=== PATIENT | female | born 1940 | race Caucasian/White ===

== ENCOUNTER 2023-11-05 08:21 | Outpatient (AMB) | payer OTHER, MEDICAID, SELFPAY ==
--- NOTE | 2023-11-05 08:23 | MHC.OFFVIS ---
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 Neuralgia-Conf Intake Note: Pt presents to the office for new pt evaluation for chronic ear and face pain. Stroboroma Operator Required: Yes Stroboroma Operator Name: Marlen JONES Tejada Allergies cortisone Allergy (Mild, Verified 11/05/23 08:25) Unknown Medication List - Last Reconciled 11/05/23 by Dee Rosas MD amlodipine 10 mg PO DAILY artificial tears(hypromellose) 0.3% (Systane Gel) 1 drp ophthalmic (eye) QID PRN atenolol 50 mg PO DAILY azelastine 1 spray intranasal BID calcium carbonate (Calcium 600) 600 mg PO DAILY cilostazol 50 mg PO BID clopidogrel 75 mg PO DAILY evolocumab (Repatha SureClick) 140 mg subcut Q2W ferrous sulfate 325 mg PO DAILY glipizide 2.5 mg PO DAILY ketotifen fumarate 0.025%(0.035%) ([place]away) 1 drp ophthalmic (eye) BID loperamide-simethicone 2-125 mg (Anti-Diarrheal (loperamide) - Anti-Gas) 1 tab PO Q3H PRN loratadine (Allergy Relief (loratadine)) 10 mg PO DAILY lorazepam 0.5 mg PO DAILY PRN losartan 25 mg PO DAILY melatonin 3 mg PO BEDTIME PRN ondansetron 4 mg PO Q8H pantoprazole 20 mg PO DAILY sucralfate 5 mL PO QID tramadol 50 mg PO BEDTIME HPI Comments Details: 83y/o female comes here for evaluation of left facial and ear pain. she is accompanied by her daughter who helps with history.the symptoms started about 1 year ago - left facial pain eye pain and eye tearing. she was seen by opthalmologist who gave her eye drops for dry eyes. she describes the discomfort as pulsating sensation in temporal region with eye tearing . No change in vision.she also reports visual aura- sees bright spots , ear pain lasting about 10 min . she has 2 episodes a day on most days. No double vision. it is triggered when she sneezes or coughs she also has tinnitus in her left ear. No further history was obtainable. she has h/o migraines with aura- she has 0-1 episode a month she used to have more frequent episodes 3 years ago whichs he attribute sto passive smoking she describes the headaches as frontal pressure throbbing with photophobia, phonophobia and visual aura - usually she sleeps and tries OTC meds. It can last 1-2 days she also wakes up with vertigo PFS Medical History (Updated 11/05/23 @ 09:38 by Dee Rosas MD) Migraine Paroxysmal hemicrania Cervical spondylosis Insomnia Memory change Hyperlipidemia Breast cancer Depression Generalized headaches Osteoporosis Arthritis Diabetes HTN (hypertension) Surgical History (Updated 11/05/23 @ 08:49 by Marlen Waters CMA) H/O lumpectomy Social History (Updated 11/05/23 @ 08:50 by Marlen Waters CMA) Household Members: Family Alcohol intake: never Patient Tobacco Use Status: Current everyday Tobacco user Cigarette Packs Per Day: 1 Years Smoked: SInce age 13 Physical Exam Vital Signs: Last Vital Signs Pulse 62 11/05/23 08:43 Resp 16 11/05/23 08:43 BP 164/84 H 11/05/23 08:43 Pulse Ox 97 11/05/23 08:43 Oxygen Delivery Method Room Air 11/05/23 08:43 BMI result Body Mass Index 21.7 Const General: cooperative, healthy appearing, comfortable and no acute distress Nutritional Appearance: average body habitus Orientation/consciousness: patient oriented x3 Eyes Pupils: Equal, round and reactive pupils present Neuro General: patient oriented x3, gait normal, tone normal and moves all extremities Cranial nerves: Yes Facial sensation intact/muscles of mastication intact, Yes Equal, round and reactive pupils present, Yes Bilaterally intact EOM present, Yes Nystagmus not present, Yes Normal facial strength present, Yes Midline tongue present and Yes Symmetric palate elevation present Cognition (Neuro): normal cognition Gait exam (Neuro): Normal gait present and Antalgic gait present Motor exam (neuro): 5/5 motor strength present throughout Deep tendon reflexes (DTR's): Right triceps reflex intensity grade: 1+, Left triceps reflex intensity grade: 1+, Rt Biceps (C5, C6): 1+, Left biceps reflex intensity grade: 1+, Right brachioradialis reflex intensity grade: 1+, Left brachioradialis reflex intensity grade: 1+, Right patellar reflex intensity grade: 1+ and Left patellar reflex intensity grade: 1+ Coordination: [id number] test normal Assessment & Plan Assessment & Plan (1) Paroxysmal hemicrania: Code(s): G44.039 - Episodic paroxysmal hemicrania, not intractable Category: Medical (2) Cervical spondylosis: Code(s): M47.812 - Spondylosis without myelopathy or radiculopathy, cervical region Category: Medical (3) Migraine: Code(s): G43.909 - Migraine, unspecified, not intractable, without status migrainosus Category: Medical Plan I will evaluate her with MRI brain ESR ? temporal arteritis Start gabapentin 100mg 1-3 tabs qhs Magnesium 250mg qhs Orders: Orders Comprehensive Met. Panel Today G44.039 - Episodic paroxysmal hemicrania, not intractable Erythrocyte Sedimentation Rate Today G44.039 - Episodic paroxysmal hemicrania, not intractable Complete Blood Count Auto Diff Today G44.039 - Episodic paroxysmal hemicrania, not intractable MR head/brain wo con Today G44.039 - Episodic paroxysmal hemicrania, not intractable Medications: New gabapentin 1-3 caps a bedtime orally bedtime; 90 caps 3RF magnesium oxide 250 mg PO DAILY 30 tabs 6RF Coding Level of Care Code New Pt Level 4 (12943) Diagnoses Paroxysmal hemicrania G44.039 Cervical spondylosis M47.812 Migraine G43.909
[2023-11-05 08:43] VITALS: BP 164/84; PULSE 62; RESP 16; O2SAT 97; BMI 21.7
== END 2023-11-05 09:26 | disposition home or self-care (01) ==
PROVIDERS: PCP Student in an Organized Health Care Education/Training Program; Visit Provider Psychiatry & Neurology Neurology
DX: G44.039 Episodic paroxysmal hemicrania, not intractable (principal); M47.812 Spondylosis without myelopathy or radiculopathy, cervical region; G43.909 Migraine, unspecified, not intractable, without status migrainosus
CPT/HCPCS: 99204

== ENCOUNTER 2023-11-05 09:34 | Outpatient (REF) | payer OTHER, MEDICAID, SELFPAY ==
[2023-11-05 17:38] LABS: MANUAL DIFF FLAG NO
[2023-11-05 17:42] LABS: Basophils Percent Auto 0.6 % (0-2); Eosinophils Absolute Auto 0.1 X10*3/uL (0.0-0.4); Eosinophils Percent Auto 1.3 % (0-4); Hematocrit 36.1 % (37.0-47.0); Hemoglobin 11.5 g/dl (12.0-16.0); Imm Gran Abs Auto 0.01 X10*3/uL (0.00-0.03); Imm Gran Pct Auto 0.1 % (0.0-0.4); Lymphocytes Absolute Auto 1.2 X10*3/uL (1.2-4.9); Lymphocytes Percent Auto 16.7 % (20-40); Mean Corpuscular HGB Conc 31.9 g/dl (31.0-35.0); Mean Corpuscular Hemoglobin 26.8 pg (27.0-33.0); Mean Corpuscular Volume 84.1 fL (80.0-98.0); Mean Platelet Volume 10.1 fL (9.4-12.3); Monocytes Absolute Auto 0.7 X10*3/uL (0.1-1.2); Monocytes Percent Auto 9.3 % (2-11); Neutrophils Absolute Auto 5.2 x10*3/uL (2.0-8.3); Platelet Count 240 X10*3/uL (160-400); Red Blood Count 4.29 X10*6/uL (4.20-5.50); Red Cell Distribution Width 16.6 % (11.0-16.0); White Blood Count 7.2 X10*3/uL (4.8-10.8)
[2023-11-05 18:29] LABS: Alanine Aminotransferase 12 U/L (0-31); Albumin Level 3.7 g/dL (3.5-5.0); Alkaline Phosphatase 77 U/L (39-117); Anion Gap 11 (12-20); Aspartate Amino Transferase 18 U/L (5-31); Bilirubin Total 0.2 mg/dL (0.0-1.0); Blood Urea Nitrogen 28 mg/dL (9-16); Carbon Dioxide 29 mmol/L (22-29); Chloride 105 mmol/L (96-108); Estimated Glomerular Filt Rate 32; Glucose Random 89 mg/dL (60-115); Potassium 3.3 mmol/L (3.3-5.1); Sodium 142 mmol/L (135-145); Total Protein 7.2 g/dL (6.5-8.0)
[2023-11-05 18:42] LABS: Erythrocyte Sedimentation Rate 39 MM/HR (0-20)
== END 2023-11-05 09:35 | disposition home or self-care (01) ==
LOC: HO.HKASLDS 09:34
PROVIDERS: Visit Provider Psychiatry & Neurology Neurology
DX: G44.039 Episodic paroxysmal hemicrania, not intractable (principal); M47.812 Spondylosis without myelopathy or radiculopathy, cervical region; G43.909 Migraine, unspecified, not intractable, without status migrainosus
CPT/HCPCS: 36415; 80053; 85025; 85652; 99202

== ENCOUNTER 2023-12-31 12:59 | Outpatient (REF) | payer OTHER, SELFPAY ==
--- NOTE | ~2023-12-31 | MR_ITS ---
EXAMINATION: MR BRAIN WITHOUT CONTRAST CLINICAL INFORMATION: Episodic paroxysmal hemicrania. COMPARISON: Images from CT scan of the neck 09/05/2022. TECHNIQUE: MRI of the brain was obtained using routine sequences without contrast. FINDINGS: No diffusion abnormalities are identified to suggest an acute or subacute infarct. No mass effect or midline shift is seen. The ventricles and sulci are commensurately prominent consistent with diffuse volume loss. There are areas of increased T2 and FLAIR signal along the anterior and posterior aspects of the lateral ventricles, and there are scattered areas of hyperintense T2 and FLAIR signal in the periventricular and subcortical white matter. These findings are most consistent with chronic microvascular ischemic changes although mild transependymal flow cannot be excluded. No extra-axial fluid collections are seen. The brainstem appears normal. No pathologic magnetic susceptibility artifact is identified on the gradient refocused acquisition. The cerebellar tonsils have normal contour and position, and the craniocervical junction appears normal. 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 The major intracranial flow-voids at the level of the [place] are preserved. The dural venous sinus flow-voids are maintained. There is trace fluid in the left mastoid tip. There have been bilateral lens extractions. The paranasal sinuses are well aerated. MR/MR head/brain wo con IMPRESSION: 1. There are no acute bleeds or territorial infarcts. No masses are demonstrated. 2. There are chronic microvascular ischemic changes and there is diffuse volume loss. Mild transependymal flow cannot be excluded. Correlate clinically for signs of hydrocephalus. Electronically signed by: Turner Fleming MD 01/24/2024 05:27 PM EDT
== END 2023-12-31 13:00 | disposition home or self-care (01) ==
LOC: HO.MRI 12:59
PROVIDERS: PCP Student in an Organized Health Care Education/Training Program; Visit Provider Psychiatry & Neurology Neurology
DX: G44.039 Episodic paroxysmal hemicrania, not intractable (principal)
CPT/HCPCS: 70551

== ENCOUNTER 2024-03-24 09:02 | Outpatient (AMB) | payer OTHER, MEDICAID, SELFPAY ==
--- NOTE | 2024-03-24 09:04 | MHC.OFFVIS ---
Vital Signs 03/24/24 09:05 Height 5 ft 3 in Weight 122 lb 2 oz BMI 21.6 BP 122/70 Blood Pressure Location Rt brachial Position Sitting Intake Visit Reasons: Chronic Ear & Facial Pain ? Neuralgia Intake Note: Patient presents for chronic ear and facial pain Allergies cortisone Allergy (Mild, Verified 03/24/24 09:08) Unknown Medication List - Last Reconciled 03/24/24 by Dee Rosas MD amlodipine 10 mg PO DAILY artificial tears(hypromellose) 0.3% (Systane Gel) 1 drp ophthalmic (eye) QID PRN atenolol 50 mg PO DAILY azelastine 1 spray intranasal BID calcium carbonate (Calcium 600) 600 mg PO DAILY cilostazol 50 mg PO BID clopidogrel 75 mg PO DAILY evolocumab (Repatha SureClick) 140 mg subcut Q2W ferrous sulfate 325 mg PO DAILY gabapentin 1-3 caps a bedtime orally bedtime; gabapentin 300 mg (1/2 x 600 mg) PO BEDTIME glipizide 2.5 mg PO DAILY ketotifen fumarate 0.025%(0.035%) ([place]away) 1 drp ophthalmic (eye) BID loperamide-simethicone 2-125 mg (Anti-Diarrheal (loperamide) - Anti-Gas) 1 tab PO Q3H PRN loratadine (Allergy Relief (loratadine)) 10 mg PO DAILY lorazepam 0.5 mg PO DAILY PRN losartan 25 mg PO DAILY magnesium oxide 250 mg PO DAILY melatonin 3 mg PO BEDTIME PRN ondansetron 4 mg PO Q8H pantoprazole 20 mg PO DAILY sucralfate 5 mL PO QID tramadol 50 mg PO BEDTIME HPI Comments Details: 83y/o female comes here for follow up of left facial and ear pain. Her MRI brain showed volume loss and nonspecific white matter changes. SHe is doing well with gabapentin and magnesium.Her sleep is better and daytime sleepiness has improved.The right temporal pain has resolved.she has rare headaches and milder. ESR was 39 History form initial visit-she is accompanied by her daughter who helps with history.the symptoms started about 1 year ago - left facial pain eye pain and eye tearing. she was seen by opthalmologist who gave her eye drops for dry eyes. she describes the discomfort as pulsating sensation in temporal region with eye tearing . No change in vision.she also reports visual aura- sees bright spots , ear pain lasting about 10 min . she has 2 episodes a day on most days. No double vision. it is triggered when she sneezes or coughs she also has tinnitus in her left ear. No further history was obtainable. she has h/o migraines with aura- she has 0-1 episode a month she used to have more frequent episodes 3 years ago whichs he attribute sto passive smoking she describes the headaches as frontal pressure throbbing with photophobia, phonophobia and visual aura - usually she sleeps and tries OTC meds. It can last 1-2 days she also wakes up with vertigo PFSH Medical History Migraine Paroxysmal hemicrania Cervical spondylosis Insomnia Memory change Hyperlipidemia Breast cancer Depression Generalized headaches Osteoporosis Arthritis Diabetes HTN (hypertension) Surgical History H/O lumpectomy Social History Household Members: Family Alcohol intake: never Patient Tobacco Use Status: Current everyday Tobacco user Cigarette Packs Per Day: 1 Years Smoked: SInce age 13 Physical Exam Vital Signs: Last Vital Signs BP 122/70 03/24/24 09:05 BMI result Body Mass Index 21.6 Const General: cooperative, healthy appearing, comfortable and no acute distress Nutritional Appearance: average body habitus Orientation/consciousness: patient oriented x3 Eyes Pupils: Equal, round and reactive pupils present Neuro General: patient oriented x3, gait normal, tone normal and moves all extremities Cranial nerves: Yes Facial sensation intact/muscles of mastication intact, Yes Equal, round and reactive pupils present, Yes Bilaterally intact EOM present, Yes Nystagmus not present, Yes Normal facial strength present, Yes Midline tongue present and Yes Symmetric palate elevation present Cognition (Neuro): normal cognition Gait exam (Neuro): Normal gait present and Antalgic gait present Motor exam (neuro): 5/5 motor strength present throughout Coordination: [id number] test normal Assessment & Plan Assessment & Plan (1) Paroxysmal hemicrania: Code(s): G44.039 - Episodic paroxysmal hemicrania, not intractable Category: Medical (2) Cervical spondylosis: Code(s): M47.812 - Spondylosis without myelopathy or radiculopathy, cervical region Category: Medical (3) Migraine: Code(s): G43.909 - Migraine, unspecified, not intractable, without status migrainosus Category: Medical Qualifiers: Migraine type: migraine (< 15 days per month) without aura Status migrainosus presence: without status migrainosus Intractability: not intractable Qualified Code(s): G43.009 - Migraine without aura, not intractable, without status migrainosus Plan Reviewed MRI brain continue gabapentin 100mg 1-3 tabs qhs Magnesium 250mg qhs Medications: Refilled magnesium oxide 250 mg PO DAILY 30 tabs 6RF gabapentin 300 mg (1/2 x 600 mg) PO BEDTIME 45 tabs 6RF Discontinued gabapentin Discontinued Reason: Patient no longer taking 1-3 caps a bedtime orally bedtime; 90 caps 3RF Coding Level of Care Code Est Pt Level 4 (73883) Complex EM visit Add On G2211 Diagnoses Paroxysmal hemicrania G44.039 Cervical spondylosis M47.812 Migraine without aura and without status migrainosus, not intractable G43.009 Migraine type: migraine (< 15 days per month) without aura Status migrainosus presence: without status migrainosus Intractability: not intractable
[2024-03-24 09:05] VITALS: BP 122/70; BMI 21.6
== END 2024-03-24 09:35 | disposition home or self-care (01) ==
LOC: HO.HSMS 09:03
PROVIDERS: PCP Student in an Organized Health Care Education/Training Program; Visit Provider Psychiatry & Neurology Neurology
DX: G44.039 Episodic paroxysmal hemicrania, not intractable (principal); M47.812 Spondylosis without myelopathy or radiculopathy, cervical region; G43.009 Migraine without aura, not intractable, without status migrainosus
CPT/HCPCS: 99214; G2211

== ENCOUNTER → 2024-03-24 09:02 | Outpatient (BNVA) | payer OTHER, MEDICAID, SELFPAY | PROVIDERS: PCP Student in an Organized Health Care Education/Training Program; Visit Provider Psychiatry & Neurology Neurology | DX: G44.039 Episodic paroxysmal hemicrania, not intractable (principal); G43.009 Migraine without aura, not intractable, without status migrainosus; M47.812 Spondylosis without myelopathy or radiculopathy, cervical region; H93.12 Tinnitus, left ear | CPT/HCPCS: 99212 ==

== ENCOUNTER 2024-12-28 14:04 | Outpatient (AMB) | payer OTHER, MEDICAID, SELFPAY ==
--- OUTSIDE RECORDS SUMMARY | 2024-12-24 07:39 | XMS_ITS | Encounter Summary ---
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 Weight loss Diarrhea, unspecified type Procedures EGD Anesthesia - MAC; [facility] ENDOSCOPY Monica Chow MD [address] [address] Phone: tel: fax: [facility] Endoscopy [address] [place] [address] Referral ID Status Reason Start Date Expiration Date V isits Requested Visits Authorized [id number] Authorized 12/15/2024 12/15/2025 1 1 Reason for Visit * Hospital - Outpatient (Routine) - Authorized Specialty Diagnoses / Procedures Referred By Meseret stahl Referred To Contact Diagnoses 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 Weight loss Diarrhea, unspecified type Procedures EGD Anesthesia - MAC; [facility] ENDOSCOPY Monica Chow MD [address] [address] Phone: tel: fax: [facility] Endoscopy [address] [place] [address] Referral ID Status Reason Start Date Expiration Date V isits Requested Visits Authorized [id number] Authorized 12/15/2024 12/15/2025 1 1 Encounter Details Date Type Department Care Team (Latest Contact Info) Description 12/24/2024 7:39 AM EDT - 12/24/2024 11:59 PM EDT Hospital Encounter [facility] Endoscopy [address] [place] [address] Monica Chow MD [address] [address] Filippo Herbert CRNA [address] [address] Tam Hollis MD [address] [place] [address] 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; Weight loss; Diarrhea, unspecified type Discharge Disposition: Home or Self Care Social History Tobacco Use Types Packs/Day Years Used Date Smoking Tobacco: Every Day Cigarettes Smokeless Tobacco: Never Alcohol Use Standard Drinks/Week Comments No 0 (1 standard drink = 0.6 oz pur e alcohol) Interpersonal Safety Answer Date Record ed Physical Abuse 12/24/2024 Verbal Abuse 12/24/2024 Comments Unknown Sex and Gender Information Value Date Recorded Sex Assigned at Not on file Legal Sex Female 2:26 AM EST Gender Identity Not on file Sexual Orientation Not on file documented as of this encounter Last Filed Vital Signs Vital Sign Reading Time Taken Comments Blood Pressure 159/75 12/24/2024 10:30 AM EDT Pulse 68 12/24/2024 10:30 AM EDT Temperature 36.1 C (97 F) 12/24/2024 9:24 AM EDT Respiratory Rate 16 12/24/2024 10:30 AM EDT Oxygen Saturation 97% 12/24/2024 10:30 AM EDT Inhaled Oxygen Concentration - - Weight 51.7 kg (114 lb) 12/24/2024 8:04 AM EDT Height 157.5 cm (5' 2 ) 12/24/2024 8:04 AM EDT Body Mass Index 20.85 12/24/2024 8:04 AM EDT documented in this encounter Discharge Instructions * Attachments The following attachments cannot be sent through Care Everywhere. * EGD (Upper Endoscopy): Post op (Swazi) * Gastric Polyps: General Info (Swazi) documented in this encounter Medications at Time of Discharge ACETAMINOPHEN ORAL Take 500 mg by mouth as needed. amLODIPine (NORVASC) 10 mg tablet Take 1 tablet (10 mg total) by mouth 1 (one) time each day. 10/30/2023 ammonium lactate (LAC-HYDRIN) 12 % lotion Apply to callousities 01/24/2022 artificial tears, hypromellose, (GENTEAL TEARS) 0.3 % ophthalmic gel atenoloL (TENORMIN) 50 mg tablet Take 1 tablet (50 mg total) by mouth 1 (one) time each day. 10/30/2023 azelastine (ASTELIN) 137 mcg (0.1 %) nasal spray USE 1 SPRAY BY NASAL ROUTE TWICE A DAY. 04/30/2023 cholecalciferol (VITAMIN D-3) 50 mcg (2,000 unit) capsule Take 1 Cap by mouth daily. cilostazoL (PLETAL) 50 mg tablet Take 1 tablet (50 mg total) by mouth 2 (two) times a day. 10/18/2023 clopidogreL (PLAVIX) 75 mg tabletIndications :Personal history of transient ischemic attack (TIA), and cerebral infarction without residual deficits TAKE 1 TABLET BY MOUTH EVERY DAY 90 tablet 1 07/30/2024 denosumab (Prolia) 60 mg/mL syringe syringe Inject 1 mL (60 mg total) under the skin 1 (one) time. Prescribed by Dr. Reardon (Rheumatology) diclofenac (VOLTAREN) 1 % topical gel Apply 4 g topically 2 times daily. 01/27/2023 evolocumab (Repatha SureClick) 140 mg/mL pen injector injection DIRECTED EVERY TWO WEEKS SUBCUTANEOUS 90 DAYS 12/14/2021 ferrous sulfate 325 mg (65 mg elemental iron) tabletIndications :Iron deficiency anemia, unspecified TAKE 1 TABLET BY MOUTH EVERY DAY 90 tablet 1 05/07/2024 gabapentin (NEURONTIN) 600 mg tablet Take 1 tablet (600 mg total) by mouth at bedtime. ketotifen (ZADITOR) 0.025 % ophthalmic solution Place 1 Drop into both eyes 2 times daily. 09/13/2020 loperamide-simeth icone 2-125 mg tablet Take 1 Tablet by mouth every 8 hours as needed for Other. 06/24/2023 loratadine (CLARITIN) 10 mg tablet Take 1 tablet (10 mg total) by mouth 1 (one) time each day. 10/30/2023 LORazepam (ATIVAN) 0.5 mg tablet Take 0.5 mg by mouth daily as needed. For anxiety losartan (COZAAR) 50 mg tabletIndications :Primary hypertension Take 1 tablet (50 mg total) by mouth 2 (two) times a day. 180 tablet 1 11/03/2024 magnesium oxide 250 mg magnesium tablet Take 1 tablet (250 mg total) by mouth 1 (one) time each day. meclizine (ANTIVERT) 12.5 mg tablet Take 1 Tablet by mouth 3 times daily as needed (dizziness). 08/03/2022 melatonin 3 mg tablet Take 1 tablet (3 mg total) by mouth at bedtime. multivitamin (MULTIPLE VITAMINS ORAL) Take by mouth. daily ondansetron (ZOFRAN) 4 mg tablet TAKE 1 TABLET BY MOUTH EVERY 8 HOURS NEEDED FOR NAUSEA 60 tablet 6 08/05/2024 sucralfate (CARAFATE) 100 mg/mL suspension Take 10 mL (1 g total) by mouth 3 (three) times a day with meals. 2700 mL 12/11/2024 5 albuterol HFA (PROAIR HFA ; PROVENTIL HFA ; VENTOLIN HFA) 90 mcg/actuation inhaler Inhale 2 puffs by mouth every 6 (six) hours if needed for wheezing. food supplemt, lactose-reduced (Boost) 0.04 gram- 1 kcal/mL liquid Take 1 Bottle by mouth 3 (three) times a day with meals. 237 mL 2 12/11/2024 5 HYDROcodone-aceta minophen (NORCO) 5-325 mg per tablet Take 1 tablet by mouth every 6 (six) hours if needed for severe pain for up to 5 days. Max Daily Amount: 4 tablets 10 tablet 12/24/2024 5 ondansetron (ZOFRAN) 4 mg tablet Take 1 tablet (4 mg total) by mouth 3 (three) times a day. 20 tablet 12/24/2024 5 pantoprazole (PROTONIX) 40 mg EC tablet Take 1 tablet (40 mg total) by mouth 2 (two) times a day. 180 each 3 12/24/2024 6 documented as of this encounter Ordered Prescriptions Prescription Sig Dispense Quantity Refills Last Filled Start Date End Date HYDROcodone-acetam inophen (NORCO) 5-325 mg per tablet Take 1 tablet by mouth every 6 (six) hours if needed for severe pain for up to 5 days. Max Daily Amount: 4 tablets 10 tablet 12/24/2024 5 ondansetron (ZOFRAN) 4 mg tablet Take 1 tablet (4 mg total) by mouth 3 (three) times a day. 20 tablet 12/24/2024 5 pantoprazole (PROTONIX) 40 mg EC tablet Take 1 tablet (40 mg total) by mouth 2 (two) times a day. 180 each 3 12/24/2024 6 documented in this encounter Discharge Disposition Disposition Code Departure Means Destination Home or Self Care documented in this encounter Progress Notes * Yamileth Madrid RN - 12/24/2024 9:40 AM EDT Problem: Cognitive:Periop Procedure - Minor Goal: Knowledge of disease or condition will improve Outcome: Adequate for Discharge Problem: Sensory:Periop Procedure - Minor Goal: Demonstrates/reports adequate pain control Outcome: Adequate for Discharge Patient tolerated fluids well. Spoke with Dr. Chow about findings, Pt. Meets criteria for discharge. * Candace Gonzales RN - 12/24/2024 7:53 AM EDT Problem: Cognitive:Periop Procedure - Minor Goal: Knowledge of disease or condition will improve Outcome: Progressing Problem: Sensory:Periop Procedure - Minor Goal: Demonstrates/reports adequate pain control Outcome: Progressing PT VERBALIZED UNDERSTAND OF DC INSTRUCTIONS, FALL RISK REVIEWED, CALL TORRE AT BEDSIDE. documented in this encounter H&P Notes * Monica Chow MD - 12/24/2024 8:30 AM EDT History and Physical Update ( H&P completed within the previous thirty days ) I personally reviewed the History and Physical, interviewed and examined the patient prior to surgery. No changes have occurred in the patient's condition since the History and Physical was completed. Source Note - Dominique Mireles NP - 12/11/2024 2:20 PM EDT CONSULT REQUEST CHIEF COMPLAINT: Weight loss HPI: Catalina Jackson is a Swazi-speaking 84 y.o. 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 Former [facility] patient. Last office visit November 2023. She is here to establish care. Patient is Swazi-speaking. She is accompanied by her daughter who translated during this visit. Patient reports history of hematemesis and rectal bleeding with EGD and colonoscopy completed in 2022. She was found to have a gastric ulcer. She takes pantoprazole and sucralfate daily. She reports she does not eat large portions. She eats very small meals. As such, she is gradually losing weight.She is requesting boost nutritional supplements sent to [facility]. She reports increased bowel frequency. She describes stool as type on [place] stool chart. She is requesting stool studies.She denies fever or malaise, nausea, vomiting, dysphagia, odynophagia, hematemesis, abdominal pain,melena or hematochezia. She denies NSAIDs or marijuana use. She smokes cigarettes 1 pack/day. Colonoscopy 05/08/2023: The entire examined colon is normal. No specimens collected. EGD 05/08/2023: Normal examined duodenum. Chronic gastritis. Bilious gastric fluid. Nonbleeding gastric ulcer with no stigmata of bleeding. Pathology: Chronic gastritis. Atypical B-cell rich lymphoidinfiltrate. Intestinal metaplasia negative for dysplasia. ROS: GENERAL: No malaise or fever HEENT: No changes in hearing or vision, nose bleeds or swallowing problems NECK: No lumps, goiter, pain or significant neck swelling RESPIRATORY: No cough, wheezing or shortness of breath CARDIOVASCULAR: No chest pain GI: See HPI MUSCULOSKELETAL: Chronic back pain SKIN: No lesions, rash or itching PAST MEDICAL HISTORY: Patient Active Problem List Diagnosis Carotid artery stenosis HTN (hypertension) Peripheral vascular disease ([facility] V24) Type II diabetes mellitus with peripheral circulatory disorder ([facility] V24, [facility] V28) Hypercholesteremia Stage 3 chronic kidney disease due to type 1 diabetes mellitus ([facility] V24, [facility] V28) Type II diabetes mellitus with neurological manifestations ([facility] V24, [facility] V28) Type II diabetes mellitus with renal manifestations ([facility] V24, [facility] V28) Lobular carcinoma in situ (LCIS) of left breast Iron deficiency anemia Peripheral polyneuropathy Postherpetic neuralgia Major depressive disorder, single episode, mild ([facility] V24) Osteoporosis Bilateral primary osteoarthritis of knee Seasonal allergies Allergic rhinitis Anemia Absolute anemia Bilateral impacted cerumen Bilateral temporomandibular joint pain Epistaxis Otalgia of left ear Proteinuria Sensorineural hearing loss (SNHL) of both ears Type 2 diabetes mellitus ([facility] V24, [facility] V28) PAST SURGICAL HISTORY: Past Surgical History: Procedure Laterality Date COLONOSCOPY 02/08/2012 PROCEDURE: HISTORICAL COLONOSCOPY; COMMENT: Josie; [facility]; normal. HAND SURGERY PROCEDURE: HISTORICAL HAND SURGERY; COMMENT: follwoing multiple injuries OTHER SURGICAL HISTORY Bilateral 05/2015 PROCEDURE: [facility] DILATION LACRIMAL PUNCTUM W/WO IRRGATION; COMMENT: for blockage OTHER SURGICAL HISTORY Left 06/20/2017 PROCEDURE: [facility] EXC CYST/ABERRANT BREAST TISSUE OPEN 1/> LESION; COMMENT: [facility]; [facility] UPPER GASTROINTESTINAL ENDOSCOPY 02/08/2012 PROCEDURE: [facility] UPPER GI ENDOSCOPY PERFORMED; COMMENT: Josie; [facility]; normal. SOCIAL HISTORY: Social History Tobacco Use Smoking status: Every Day Current packs/day: 0.50 Types: Cigarettes Smokeless tobacco: Never Substance Use Topics Alcohol use: No Drug use: No FAMILY HISTORY: Family History Problem Relation Name Age of Onset Colon cancer Father 60.00 Pancreatic cancer Brother 80.00 No Known Problems Sister Stroke Mother Arthritis Mother No Known Problems Daughter Pancreatic cancer Brother 63.00 No Known Problems Son Other (Other: TB) Sister Other (Other: Other (unknown)) Sister Other (Other: Other (unknown)) Sister Other (Other: Other (unknown)) Sister Other (Other: Other (unknown)) Sister MEDICATIONS: Outpatient Medications Marked as Taking for the 12/11/24 encounter (Office Visit) with Dominique Mireles NP Medication Sig Dispense Refill ACETAMINOPHEN ORAL Take 500 mg by mouth as needed. amLODIPine (NORVASC) 10 mg tablet Take 1 tablet (10 mg total) by mouth 1 (one) time each day. ammonium lactate (LAC-HYDRIN) 12 % lotion Apply to callousities artificial tears, hypromellose, (GENTEAL TEARS) 0.3 % ophthalmic gel atenoloL (TENORMIN) 50 mg tablet Take 1 tablet (50 mg total) by mouth 1 (one) time each day. azelastine (ASTELIN) 137 mcg (0.1 %) nasal spray USE 1 SPRAY BY NASAL ROUTE TWICE A DAY. cholecalciferol (VITAMIN D-3) 50 mcg (2,000 unit) capsule Take 1 Cap by mouth daily. cilostazoL (PLETAL) 50 mg tablet Take 1 tablet (50 mg total) by mouth 2 (two) times a day. clopidogreL (PLAVIX) 75 mg tablet TAKE 1 TABLET BY MOUTH EVERY DAY 90 tablet 1 denosumab (Prolia) 60 mg/mL syringe syringe Inject 1 mL (60 mg total) under the skin 1 (one) time. Prescribed by Dr. Reardon (Rheumatology) diclofenac (VOLTAREN) 1 % topical gel Apply 4 g topically 2 times daily. evolocumab (Repatha SureClick) 140 mg/mL pen injector injection DIRECTED EVERY TWO WEEKS SUBCUTANEOUS 90 DAYS famotidine (PEPCID) 20 mg tablet TAKE 1 TABLET BY MOUTH 2 TIMES DAILY NEEDED FOR HEARTBURN. 180 tablet 3 ferrous sulfate 325 mg (65 mg elemental iron) tablet TAKE 1 TABLET BY MOUTH EVERY DAY 90 tablet 1 gabapentin (NEURONTIN) 600 mg tablet Take 1 tablet (600 mg total) by mouth at bedtime. ketotifen (ZADITOR) 0.025 % ophthalmic solution Place 1 Drop into both eyes 2 times daily. loperamide-simethicone 2-125 mg tablet Take 1 Tablet by mouth every 8 hours as needed for Other. loratadine (CLARITIN) 10 mg tablet Take 1 tablet (10 mg total) by mouth 1 (one) time each day. LORazepam (ATIVAN) 0.5 mg tablet Take 0.5 mg by mouth daily as needed. For anxiety losartan (COZAAR) 50 mg tablet Take 1 tablet (50 mg total) by mouth 2 (two) times a day. 180 tablet1 magnesium 250 mg tablet magnesium oxide 250 mg magnesium tablet Take 1 tablet (250 mg total) by mouth 1 (one) time each day. meclizine (ANTIVERT) 12.5 mg tablet Take 1 Tablet by mouth 3 times daily as needed (dizziness). melatonin 3 mg tablet Take 1 tablet (3 mg total) by mouth at bedtime. multivitamin (MULTIPLE VITAMINS ORAL) Take by mouth. daily ondansetron (ZOFRAN) 4 mg tablet TAKE 1 TABLET BY MOUTH EVERY 8 HOURS NEEDED FOR NAUSEA 60 tablet 6 pantoprazole (PROTONIX) 40 mg EC tablet Take 1 tablet (40 mg total) by mouth 1 (one) time each day.90 each 3 sucralfate (CARAFATE) 100 mg/mL suspension Take 10 mL (1 g total) by mouth 3 (three) times a day with meals. 2700 mL 0 [DISCONTINUED] pantoprazole (PROTONIX) 40 mg EC tablet TAKE 1 TABLET BY MOUTH EVERY DAY 90 tablet 3 [DISCONTINUED] sucralfate (CARAFATE) 100 mg/mL suspension TAKE 10 ML BY MOUTH 3 TIMES DAILY NEEDED (HEARTBURN, H/O GASTRIC ULCER). 1200 mL 1 ALLERGIES: Allergies Allergen Reactions Aspirin Hives Cortisone ? Anaphylaxis After injection in office-emergent transport Lisinopril Cough Oxycodone-Acetaminophen Peanut Butter Flavor Hives Shellfish Containing Products Hives PHYSICAL EXAM: Visit Vitals BP 126/76 (BP Location: Left arm, Patient Position: Sitting, BP Cuff Size: Adult) Ht 1.524 m (60 ) Wt 51.5 kg (113 lb 9.6 oz) SpO2 93% BMI 22.19 kg/m?? Smoking Status Every Day BSA 1.47 m?? APPEARANCE: Alert and in no acute distress EYES: Conjunctiva and sclera normal. MOUTH/THROAT: No erythema, exudates or lesions noted NECK: Neck supple, no adenopathy HEART: RRR with normal S1 and S2 LUNG: clear to auscultation ABDOMEN: soft non tender, no ascites, guarding, or rebound. RECTAL: Exam deferred NEURO: Awake, alert and oriented x 3 SKIN: Skin color, texture, turgor normal. LABS: No results found for: WBC , HGB , HCT , MCV , PLT No results found for: ALT , AST , GGT , ALKPHOS , BILITOT IMAGING: No pertinent imaging within the last 1 month IMPRESSION: 1. Pancreatic duct dilated 2. Weight loss 3. Tobacco use disorder 4. 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 Diarrhea, unspecified type 6. Type 2 diabetes mellitus with diabetic autonomic neuropathy, without long- term current use of insulin ([facility] V24, [facility] V28) PLAN: Catalina Jackson is a Swazi-speaking 84 y.o. 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 1. Pancreatic duct dilated: As seen on MRI completed 2023. Patient is asymptomatic. Complete hepatic function. If significant findings, will refer to [facility] for possible EUS i.e. after discussion with patient and caregiver. 2. Weight loss: This is likely multifactorial. I reviewed weight entries on EHR. Weight ranging between 120-113. She admits she does not eat large portions. She smokes cigarettes 1 pack/day likely suppressing her appetite. She was encouraged to eat small portions throughout the day. I will also send a prescriptionof boost nutritional supplements to her pharmacy. 3. Tobacco use disorder: She is smoking 1 pack/day. Tobacco use cessation strongly encouraged. There is no motivation to quit. 4. 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 Chronic gastritis. Bilious gastric fluid. Nonbleeding gastric ulcer with no stigmata of bleeding. Pathology: Chronic gastritis. Atypical B-cell rich lymphoidinfiltrate. Intestinal metaplasia negative for dysplasia. Surveillance EGD was recommended to further differentiate atypical B-cell lymphoid infiltrates. This was not done. I will schedule. Patient understand the risks of EGD include infection and bleeding. Tissue biopsy may be performed during the procedure. Patient's daughter is requesting stool studies for her mother. I will order. Patient agrees with the above plan and understands the need to follow up as indicated. Please note, this note may have been created in part by using [employer] dictation software, and therefore, it may contain typographical and/or grammatical errors inherent in a voice recognition software program Orders Placed This Encounter Procedures Clostridium difficile toxin Gastrointestinal pathogens molecular study Hepatic function panel Helicobacter pylori antigen, stool None documented in this encounter Procedure Notes * Yamileth Madrid RN - 12/24/2024 10:05 AM EDT Pt c/o nausea. Zofran admin IV. Pt report feeling better. Dr. Chow to bedside to speak to pt and family Sharla. * Yamileth Madrid RN - 12/24/2024 9:[address] Chow, restart plavix in 7 days. 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 Weight loss Diarrhea, unspecified type Release Upon Ordering for 1 Occurrences starting 12/24/2024, 1 completed documented as of this encounter Procedures Procedure Name Priority Date/Time Associated Diagnosis Comments EGD Routine 12/24/2024 9:23 AM EDT 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 Resected and retrieved. Treatment not successful. Clips (MR conditional) were placed. Clip field marketing lead: [employer]. hemostatic spray applied. - Normal esophagus. - Mucosal resection was performed. Resection was complete, and retrieval was complete. Recommendation: - Discharge patient to home. - Await pathology results. - Repeat upper endoscopy in 3 months for surveillance. Narrative 12/24/2024 9:27 AM EDT [facility] GI Patient Name: Catalina Jackson Procedure Date: 12/24/2024 8:18 AM Date of : 1940 Age: 84 Gender: Female Note Status: Finalized Attending MD: Monica Chow MD, Procedure Date No Time: 12/24/2024 Procedure: Upper GI endoscopy Indications: Surveillance for malignancy due to personal history of gastric adenoma, Surveillance for malignancy due to personal history of premalignant condition Providers: Monica Chow MD Referring MD: Monica Chow MD Medicines: Monitored Anesthesia Care Complications: No immediate complications. Estimated blood loss: Minimal. Estimated Blood Loss: Estimated blood loss was minimal. Procedure: Pre-Anesthesia Assessment: - Prior to the procedure, a History and Physical was performed, and patient medications and allergies were reviewed. The patient is competent. The risks and benefits of the procedure and the sedation options and risks were discussed with the patient. All questions were answered and informed consent was obtained. Patient identification and proposed procedure were verified by the physician, the nurse, the counter tender and the biomedical technician in the pre-procedure area in the endoscopy suite. Mental Status Examination: alert and oriented. Airway Examination: normal oropharyngeal airway and neck mobility. Respiratory Examination: clear to auscultation. CV Examination: normal. Prophylactic Antibiotics: The patient does not require prophylactic antibiotics. Prior Anticoagulants: The patient has taken no anticoagulant or antiplatelet agents. ASA Grade Assessment: III - A patient with severe systemic disease. After reviewing the risks and benefits, the patient was deemed in satisfactory condition to undergo the procedure. The anesthesia plan was to use monitored anesthesia care (MAC). Immediately prior to administration of medications, the patient was re-assessed for adequacy to receive sedatives. The heart rate, respiratory rate, oxygen saturations, blood pressure, adequacy of pulmonary ventilation, and response to care were monitored throughout the procedure. The physical status of the patient was re-assessed after the procedure. After obtaining informed consent, the endoscope was passed under direct vision. Throughout the procedure, the patient's blood pressure, pulse, and oxygen saturations were monitored continuously. The Endoscope was introduced through the mouth, and advanced to the second part of duodenum. The upper GI endoscopy was accomplished without difficulty. The patient tolerated the procedure well. Findings: A single 14 mm flat polyp with bleeding and stigmata of recent bleeding was found at the incisura. Area was unsuccessfully injected with 5 mL saline for lesion assessment, but the lesion could not be lifted adequately. Preparations were made for mucosal resection. Saline was injected with partial lift of the lesion from the muscularis propria. Band ligator and snare mucosal resection with Spencer net retrieval was performed. A 15 mm area was resected. Resection was complete, and retrieval was complete. Resected tissue margins were examined and clear of polyp tissue. A slow ooze remained at the end of the procedure. To prevent bleeding after mucosal resection, seven hemostatic clips were successfully placed (MR conditional). Clip field marketing lead: Print[employer]. There was no bleeding at the end of the procedure. To stop bleeding after the polypectomy, hemostatic spray was deployed. Multiple sprays were applied. There was no bleeding at the end of the procedure. Estimated blood loss was minimal. The esophagus was normal. Procedure Code(s): --- Professional --- 38797, Esophagogastroduodenoscopy, flexible, transoral; with endoscopic mucosal resection Diagnosis Code(s): --- Professional --- K31.7, Polyp of stomach and duodenum Z87.19, Personal history of other diseases of the digestive system CPT copyright 2020 [employer]. All rights reserved. The codes documented in this report are preliminary and upon paraprofessional interpreter review may be revised to meet current compliance requirements. Monica Chow MD 12/24/2024 9:27:26 AM This report has been signed electronically.Monica Chow MD Number of Addenda: 0 Note Initiated On: 12/24/2024 8:18 AM Scope In: Scope Out: Endoscopy Department at [facility] - [address] [place] [id number] Procedure Note Monica Chow MD - 12/24/2024 [facility] GI Patient Name: Catalina Jackson Procedure Date: 12/24/2024 8:18 AM Date of : 1940 Age: 84 Gender: Female Note Status: Finalized Attending MD: Monica Chow MD, Procedure Date No Time: 12/24/2024 Procedure: Upper GI endoscopy Indications: Surveillance for malignancy due to personal historyof gastric adenoma, Surveillance for malignancy due to personal history of premalignant condition Providers: Monica Chow MD Referring MD: Monica Chow MD Medicines: Monitored Anesthesia Care Complications: No immediate complications. Estimated blood loss: Minimal. Estimated Blood Loss: Estimated blood loss was minimal. Procedure: Pre-Anesthesia Assessment: - Prior to the procedure, a History and Physicalwas performed, and patient medications and allergieswere reviewed. The patient is competent. The risks and benefits of the procedure and the sedation optionsand risks were discussed with the patient. Allquestions were answered and informed consent was obtained. Patient identification and proposed procedure were verified by the physician, the nurse, theanesthetist and the biomedical technician in the pre-procedure area in the endoscopy suite. Mental Status Examination: alertand oriented. Airway Examination: normal oropharyngeal airway and neck mobility. Respiratory Examination: clear to auscultation. CV Examination: normal. Prophylactic Antibiotics: The patient does notrequire prophylactic antibiotics. Prior Anticoagulants: The patient has taken no anticoagulant or antiplatelet agents. ASA Grade Assessment: III - A patient with severe systemic disease. After reviewing the risksand benefits, the patient was deemed in satisfactory condition to undergo the procedure. The anesthesia plan was to use monitored anesthesia care (MAC). Immediately prior to administration of medications, the patient was re-assessed for adequacy to receive sedatives. The heart rate, respiratory rate, oxygen saturations, blood pressure, adequacy of pulmonary ventilation, and response to care were monitored throughout the procedure. The physical status ofthe patient was re-assessed after the procedure. After obtaining informed consent, the endoscope was passed under direct vision. Throughout theprocedure, the patient's blood pressure, pulse, and oxygen saturations were monitored continuously. TheEndoscope was introduced through the mouth, and advanced tothe second part of duodenum. The upper GI endoscopy was accomplished without difficulty. The patienttolerated the procedure well. Findings: A single 14 mm flat polyp with bleeding andstigmata of recent bleeding was found at the incisura. Areawas unsuccessfully injected with 5 mL saline for lesion assessment, but the lesion could not be lifted adequately. Preparations were made for mucosal resection. Saline was injected with partial lift of the lesion from the muscularis propria. Bandligator and snare mucosal resection with Spencer net retrieval was performed. A 15 mm area was resected. Resection was complete, and retrieval was complete. Resected tissue margins were examined and clear of polyp tissue. A slow ooze remained at the end of the procedure. To prevent bleeding after mucosal resection, seven hemostatic clips were successfully placed (MR conditional). Clip field marketing lead: [employer]. There was no bleeding at the end of the procedure. To stop bleeding after the polypectomy, hemostatic spray was deployed. Multiple sprays were applied. There was no bleeding at the end of the procedure. Estimated blood loss was minimal. The esophagus was normal. Procedure Code(s): --- Professional --- 83259, Esophagogastroduodenoscopy, flexible, transoral; with endoscopic mucosal resection Diagnosis Code(s): --- Professional --- K31.7, Polyp of stomach and duodenum Z87.19, Personal history of other diseases of the digestive system CPT copyright 2020 [employer]. All rights reserved. The codes documented in this report are preliminary and upon paraprofessional interpreter reviewmay be revised to meet current compliance requirements. Monica Chow MD 12/24/2024 9:27:26 AM This report has been signed electronically.Monica Chow MD Number of Addenda: 0 Note Initiated On: 12/24/2024 8:18 AM Scope In: Scope Out: Endoscopy Department at [facility] - [address] [place] [id number] IMPRESSION: - A single gastric polyp. Resected and retrieved. Treatment not successful. Clips (MR conditional)were placed. Clip field marketing lead: PrintToPeer. hemostatic spray applied. - Normal esophagus. - Mucosal resection was performed. Resection was complete, and retrieval was complete. Recommendation: - Discharge patient to home. - Await pathology results. - Repeat upper endoscopy in 3 months forsurveillance. 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 Stop Taking at Discharge 04/20/2024 12/24/2024 pantoprazole (PROTONIX) 40 mg EC tablet Take 1 tablet (40 mg total) by mouth 1 (one) time each day. 12/11/2024 12/24/2024 documented as of this encounter Historical Medications * This list may reflect changes made after this encounter. albuterol HFA (PROAIR HFA ; PROVENTIL HFA ; VENTOLIN HFA) 90 mcg/actuation inhaler Inhale 2 puffs by mouth every 6 (six) hours if needed for wheezing. added in this encounter Orders Discharge Count Last Ordered Date First Orde red Date DISCHARGE PATIENT 1 12/24/2024 documented in this encounter Care Teams Visual Merchandising Director Relationship Specialty Start Date End Date Massiel Jaramillo MD [address] [place] [id number] PCP - General 11/04/23 documented as of this encounter
--- NOTE | 2024-12-28 14:05 | A.OFFVIS_ITS ---
Vital Signs 12/28/24 14:06 Height 5 ft 3 in BP 128/58 L Blood Pressure Location Rt brachial Position Sitting Pulse 70 Pulse Source Pulse Oximeter Pulse Oximetry (%) 98 Oxygen Delivery Method Room Air Intake Visit Reasons: Chronic Ear & Facial Pain ? Neuralgia Tractor Driver Teamster Required: Yes Tractor Driver Teamster Services: Tractor Driver Teamster Offered & Declined Tractor Driver Teamster Name: Daughter to pearl stringer Accompanied by: Daughter Allergies cortisone Allergy (Mild, Verified 12/28/24 14:10) Unknown HPI Comments Details: 84y/o female comes here for follow up of left facial and ear pain. she was taking gabapentin 300mg qhs as needed. Last week she had a gastric surgeryfor polyp and stopped gabapentin magnesium she had 2 episodes of head pain -left temperofrontal region associated iwth with tearing lasting few minutes.Artificial tears or cold compress helps her . Her MRI brain showed volume loss and nonspecific white matter changes. Her sleep is better and daytime sleepiness has improved.The left temporal pain has resolved. ESR was 39 History form initial visit-she is accompanied by her daughter who helps with history.the symptoms started about 1 year ago - left facial pain eye pain and eye tearing. she was seen by opthalmologist who gave her eye drops for dry eyes. she describes the discomfort as pulsating sensation in temporal region with eye tearing . No change in vision.she also reports visual aura- sees bright spots , ear pain lasting about 10 min . she has 2 episodes a day on most days. No double vision. it is triggered when she sneezes or coughs she also has tinnitus in her left ear. No further history was obtainable. she has h/o migraines with aura- she has 0-1 episode a month she used to have more frequent episodes 3 years ago whichs he attribute sto passive smoking she describes the headaches as frontal pressure throbbing with photophobia, phonophobia and visual aura - usually she sleeps and tries OTC meds. It can last 1-2 days she also wakes up with vertigo [facility] Medical History Migraine Paroxysmal hemicrania Cervical spondylosis Insomnia Memory change Hyperlipidemia Breast cancer Depression Generalized headaches Osteoporosis Arthritis Diabetes HTN (hypertension) Surgical History H/O lumpectomy Social History Household Members: Family Alcohol intake: never Patient Tobacco Use Status: Current everyday Tobacco user Cigarette Packs Per Day: 1 Years Smoked: SInce age 13 Physical Exam Const General: cooperative, healthy appearing, comfortable and no acute distress Nutritional Appearance: average body habitus Orientation/consciousness: patient oriented x3 Eyes Pupils: Equal, round and reactive pupils present Neuro General: patient oriented x3, gait normal, tone normal and moves all extremities Cranial nerves: Yes Facial sensation intact/muscles of mastication intact, Yes Equal, round and reactive pupils present, Yes Bilaterally intact EOM present, Yes Nystagmus not present, Yes Normal facial strength present, Yes Midline tongue present and Yes Symmetric palate elevation present Cognition (Neuro): normal cognition Gait exam (Neuro): Normal gait present and Antalgic gait present Motor exam (neuro): 5/5 motor strength present throughout Coordination: [id number] test normal Assessment & Plan Assessment & Plan (1) Paroxysmal hemicrania: Code(s): G44.039 - Episodic paroxysmal hemicrania, not intractable Category: Medical (2) Cervical spondylosis: Code(s): M47.812 - Spondylosis without myelopathy or radiculopathy, cervical region Category: Medical (3) Migraine: Code(s): G43.909 - Migraine, unspecified, not intractable, without status migrainosus Category: Medical Qualifiers: Migraine type: migraine (< 15 days per month) without aura Status migrainosus presence: without status migrainosus Intractability: not intractable Qualified Code(s): G43.009 - Migraine without aura, not intractable, without status migrainosus Plan Restart gabapentin 100mg 1-3 tabs qhs Magnesium 250mg qhs Coding Level of Care Code Est Pt Level 4 (55702) Diagnoses Paroxysmal hemicrania G44.039 Cervical spondylosis M47.812 Migraine without aura and without status migrainosus, not intractable G43.009 Migraine type: migraine (< 15 days per month) without aura Status migrainosus presence: without status migrainosus Intractability: not intractable
[2024-12-28 14:06] VITALS: BP 128/58; PULSE 70; O2SAT 98
--- OUTSIDE RECORDS SUMMARY | 2024-12-28 14:32 | XMS_ITS | Encounter Summary ---
Author Organization [facility] Address [address] [place] [address] Phone Care Team Providers Care Raw Mill Operator Name Role Phone Kunal Rodarte DO Primary Care Provider [phone] Encounter Details Date Type Department Care Team (Late st Contact Info) Description 07/05/2023 Documentation Only [facility] [address] [place] [address] Hedy Mirza [address] [place] [address] Social History Tobacco Use Types Packs/Day Years Used Date Smoking Tobacco: Every Day Cigarettes 1 68 Smokeless Tobacco: Never Alcohol Use Standard Drinks/Week Comments Never 0 (1 standard drink = 0.6 oz pur e alcohol) Comments Unknown Sex and Gender Information Value Date Recorded Sex Assigned at Not on file Legal Sex Female 1:14 PM EST Gender Identity Not on file Sexual Orientation Not on file documented as of this encounter Plan of Treatment Upcoming Encounters Date Type Department Care Team (Late st Contact Info) Description 02/11/2025 12:50 PM EDT Office Visit [facility] [address] [address] Doni Brandon MD [address] [place] [address] [place] [address] documented as of this encounter Visit Diagnoses Not on filedocumented in this encounter Care Teams Raw Mill Operator Relationship Specialty Start Date End Date Kunal Rodarte DO [address] [place] [address] PCP - General 01/22/23 documented as of this encounter
--- OUTSIDE RECORDS SUMMARY | 2024-12-28 14:32 | XMS_ITS | Clinical Summary ---
Author Organization [facility] Address [address] [place] [address] Care Team Providers Care Road Tester Name Role Phone Kunal Rodarte DO Primary Care Provider [phone] Allergies Active Allergy Reactions Criticality Noted Date Comments Aspirin Hives Low 09/23/2012 Cortisone Anaphylaxis High 06/25/2019 ? Anaphylaxis After injection in office-emergent transport Lisinopril Shortness Of Breath,Swelling High 07/28/2013 Peanut (Diagnostic) Hives Low 06/22/2022 Shellfish-Derived Products Hives,Anaphylaxis High 09/23/2012 Medications Medication Sig Dispensed Refills Start Date End Date Status amLODIPine (NORVASC) tablet 10 mg Take 1 tablet (10 mg total) by mouth daily. 0 05/14/2023 Active atenolol (TENORMIN) tablet 50 mg Take 1 tablet (50 mg total) by mouth daily. 0 05/14/2023 Active benzonatate (TESSALON) 100 MG capsule benzonatate 100 mg capsule TAKE 1 CAPSULE BY MOUTH 3 TIMES DAILY NEEDED FOR COUGH FOR UP TO 7 DAYS. 0 Active cetirizine (ZyrTEC) 10 MG tablet Take 1 tablet (10 mg total) by mouth daily. 0 09/13/2020 Active buPROPion (WELLBUTRIN) 75 MG tablet TAKE 1 TABLET BY MOUTH EVERY DAY IN THE MORNING 0 12/29/2019 Active clopidogrel (PLAVIX) 75 MG tablet Take 1 tablet (75 mg total) by mouth daily. 0 05/22/2022 Active escitalopram (LEXAPRO) tablet 10 mg Take 1 tablet (10 mg total) by mouth. 0 03/15/2020 Active Evolocumab (Repatha SureClick) 140 MG/ML injection DIRECTED EVERY TWO WEEKS SUBCUTANEOUS 90 DAYS 0 12/14/2021 Active famotidine (PEPCID) 20 MG tablet Take 1 tablet (20 mg total) by mouth 2 (two) times a day. 0 Active Ferrous Sulfate (Iron) 325 (65 Fe) MG TABS Take 1 tablet by mouth daily. 0 04/30/2022 Active glipiZIDE (GLUCOTROL XL) ER 24 hr tablet 2.5 mg Take 1 tablet (2.5 mg total) by mouth daily. 0 02/05/2023 Active LORazepam (ATIVAN) 0.5 MG tablet 0 04/28/2023 Active losartan (COZAAR) tablet 50 mg TAKE 1 TABLET BY MOUTH 1 TIME EACH DAY. 0 2022 Active melatonin 3 MG TABS tablet melatonin 3 mg tablet TAKE 2 TABLET BY MOUTH DAILY IN THE EVENING AT BEDTIME 0 Active pantoprazole (PROTONIX) 40 MG tablet Take 1 tablet (40 mg total) by mouth daily. 0 05/31/2023 Active sucralfate (CARAFATE) 1 GM/10ML suspension 0 07/01/2023 Active traMADol (ULTRAM) 50 MG tablet TAKE 1 TABLET BY MOUTH THREE TIMES A DAY NEEDED FOR PAIN 0 05/08/2019 Active Active Problems Problem Noted Date Diagnosed Date Anemia 07/03/2023 Social History Tobacco Use Types Packs/Day Years Used Date Smoking Tobacco: Never Assessed Sex and Gender Information Value Date Recorded Sex Assigned at Female 07/02/2023 4:41 PM EST Gender Identity Not on file Sexual Orientation Not on file Job Start Date Occupation Industry Not on file Not on file Not on file Last Filed Vital Signs Vital Sign Reading Time Taken Comments Blood Pressure 126/45 08/13/2023 2:10 PM EDT Pulse 54 08/13/2023 2:10 PM EDT Temperature 36.1 C (97 F) 08/13/2023 2:10 PM EDT Respiratory Rate 18 07/26/2023 2:07 PM EST Oxygen Saturation 100% 07/29/2023 2:07 PM EDT Inhaled Oxygen Concentration - - Weight 55.6 kg (122 lb 9.6 oz) 07/04/2023 2:12 P M EST Height - - Body Mass Index - - Plan of Treatment Health Maintenance Due Date Last Done Comments Depression Screening 1952 Preventative Health Evaluation 09/05/1958 Fall Risk Assessment 2006 Osteoporosis Screening (DEXA Scan) 2006 RSV Adult > 60+ Yrs or (1 - 1-dose 75+ series) 2016 Shingrix-Zoster Vaccine (2 of 2) 01/21/2021 11/26/2020 COVID-19 Vaccine (3 - season) 2024 07/27/2020, 07/06/2020 Influenza Vaccine (#1) 2025 3, 01/25/2022, 04/05/2020, Additional history exists DTap / Tdap / Td (2 - Td or Tdap) 10/17/2025 10/18/2015 Pneumococcal Vaccine Completed 10/18/2015, 12/24/2014, 10/24/2012 Hepatitis B Vaccines Aged Out No long er eligible based on patient's age to complete this topic RSV Ped < 20 months Aged Out No longe r eligible based on patient's age to complete this topic Care Teams Road Tester Relationship Specialty Start Date End Date Kunal Rodarte DO [address] [place] [id number] PCP - General Family Medicine 07/01/23
== END 2024-12-28 14:47 | disposition home or self-care (01) ==
LOC: HO.HSMS 14:05
PROVIDERS: PCP Student in an Organized Health Care Education/Training Program; Visit Provider Psychiatry & Neurology Neurology
DX: G44.039 Episodic paroxysmal hemicrania, not intractable (principal); M47.812 Spondylosis without myelopathy or radiculopathy, cervical region; G43.009 Migraine without aura, not intractable, without status migrainosus
CPT/HCPCS: 99214

== ENCOUNTER → 2024-12-28 14:04 | Outpatient (BNVA) | payer OTHER, SELFPAY | PROVIDERS: PCP Student in an Organized Health Care Education/Training Program; Visit Provider Psychiatry & Neurology Neurology | DX: G44.039 Episodic paroxysmal hemicrania, not intractable (principal); M47.812 Spondylosis without myelopathy or radiculopathy, cervical region; G43.009 Migraine without aura, not intractable, without status migrainosus | CPT/HCPCS: 99212 ==